=== PATIENT | male | born 1975 | race Caucasian/White ===

== ENCOUNTER 2019-07-19 07:16 | Emergency (ER) | payer OTHER ==
[~2019-07-19] VITALS: Ht 180.3 cm; Wt 99.8 kg
[2019-07-19] MEDS ORDERED: NOHOMEMEDICATIONS (08:06)
[2019-07-19 08:23] LABS: HEMATOCRIT 49.1 % (42.0-52.0); HEMOGLOBIN 16.9 gm/dL (14.0-18.0); MCH 31.6 pg (26.0-34.0); MCHC 34.4 g/dL (28.0-37.0); MCV 91.8 fL (80.0-100.0); PLATELET COUNT 123 thou/uL (150-400); RBC 5.34 mil/uL (4.50-6.00); RDW 12.5 % (10.5-14.5); WBC 7.1 thou/uL (4.0-11.0)
[2019-07-19 08:28] LABS: CREATININE 1.4 mg/dL (0.7-1.3); POTASSIUM 4.1 mmol/L (3.5-5.1)
[2019-07-19] MEDS ORDERED: TYLENOL WITH CO1 TA1 PO (09:15)
[2019-07-19] MEDS ORDERED: ZPAK PO (09:15)
[2019-07-19 09:18] VITALS: BP 99/55
[2019-07-19 09:24] LABS: ABSOLUTE NEUTROPHILS 4.9 thou/uL (1.4-8.2); PLATELET ESTIMATE DECREASED
== END 2019-07-19 09:19 | disposition home or self-care (01) ==
LOC: ER 07:16
PROVIDERS: Emergency Medicine
DX: J10.00 Influenza due to other identified influenza virus with unspecified type of pneumonia (principal)

== ENCOUNTER 2020-05-19 23:15 | Emergency (ER) | payer OTHER ==
[~2020-05-19] VITALS: Ht 180.3 cm; Wt 113.4 kg
[~2020-05-19 23:15] MED LIST: NOHOMEMEDICATIONS; TYLENOL WITH CO1 TA1 PO; ZPAK PO
[2020-05-20] MEDS ORDERED: NAPROSYN500 MG PO (02:45)
[2020-05-20] MEDS ORDERED: TRAMADOL 50 MG50 MG PO (02:45)
[2020-05-20 02:46] VITALS: BP 128/87
== END 2020-05-20 02:46 | disposition home or self-care (01) ==
LOC: ER 23:15
DX: S01.01XA Laceration without foreign body of scalp, initial encounter (principal); W22.8XXA Striking against or struck by other objects, initial encounter; Y93.89 Activity, other specified; Y92.89 Other specified places as the place of occurrence of the external cause; Y99.8 Other external cause status

== ENCOUNTER 2020-05-27 23:49 | Emergency (ER) | payer OTHER ==
[~2020-05-27] VITALS: Ht 180.3 cm; Wt 113.4 kg
[~2020-05-27 23:49] MED LIST changes: +NAPROSYN500 MG PO; +TRAMADOL 50 MG50 MG PO
[2020-05-28 01:42] VITALS: BP 120/81
== END 2020-05-28 01:43 | disposition home or self-care (01) ==
LOC: ER 23:49
DX: S01.01XD Laceration without foreign body of scalp, subsequent encounter (principal); W22.8XXD Striking against or struck by other objects, subsequent encounter